=== PATIENT | male | born 1985 ===

== ENCOUNTER 2016-09-06 06:05 | Emergency (ER) | payer SELFPAY ==
[2016-09-06 06:23] VITALS: RESP 18; O2SAT 97
[2016-09-06 06:24] VITALS: BMI 30.1
--- NOTE | 2016-09-06 07:21 | ED PDOC ---
Arrival/HPI - General Chief Complaint: Cough, Cold, Congestion Time Seen by Provider: 09/06/16 07:06 Historian: Patient - History of Present Illness Narrative History of Present Illness (Text): 09/06/16 07:13 A 31 year old male, who denies any past medical history, presents to the emergency department complaining of a sore throat since yesterday. Patient notes chills, body aches and a productive cough with yellow/white sputum. He reports he experiences chest discomfort only when coughing. Patient denies any fever, ear ache, nausea, vomiting, diarrhea, abdominal pain, urinary symptoms, shortness of breath or any other complaints. PMD: Dr. Vazquez Time/Duration: Other (Yesterday) Symptom Course: Unchanged Quality: Other Context: Home Past Medical History - Provider Review Nursing Documentation Reviewed: Yes - Past History Past History: No Previous - Tetanus Immunization Tetanus Immunization: Unknown - Past Medical History Past Medical History: No Previous - Cardiac Hx Cardiac Disorders: No - Pulmonary Hx Respiratory Disorders: No - Neurological Hx Neurological Disorder: No - HEENT Hx HEENT Disorder: No - Renal Hx Renal Disorder: No - Endocrine/Metabolic Hx Endocrine Disorders: No - Hematological/Oncological Hx Blood Disorders: No - Integumentary Hx Dermatological Disorder: No - Musculoskeletal/Rheumatological Hx Musculoskeletal Disorders: No - Gastrointestinal Hx Gastrointestinal Disorders: No - Genitourinary/Gynecological Hx Genitourinary Disorders: No - Psychiatric Hx Psychophysiologic Disorder: No Hx Anxiety: No Hx Bipolar Disorder: No Hx Depression: Yes Hx Emotional Abuse: No Hx Hallucinations: No Hx Panic Disorder: No Hx Post Traumatic Stress Disorder: No Hx Psychosis: No Hx Physical Abuse: No Hx Schizophrenia: No Hx Sexual Abuse: No Hx Substance Use: No - Past Surgical History Past Surgical History: No Previous - Anesthesia Hx Anesthesia: No Hx Anesthesia Reactions: No - Suicidal Assessment Feels Threatened In Home Enviroment: No Family/Social History - Physician Review Nursing Documentation Reviewed: Yes Family/Social History: No Known Family HX Smoking Status: Never Smoked Hx Alcohol Use: No Hx Substance Use: No Hx Substance Use Treatment: No Allergies/Home Meds Allergies/Adverse Reactions: Allergies No Known Allergies Allergy (Verified 09/06/16 06:19) Review of Systems - Physician Review All systems were reviewed & negative as marked: Yes - Review of Systems Constitutional: Night Sweats. absent: Fevers ENT: Sore Throat. absent: TMJ Pain Respiratory: Cough, Sputum. absent: SOB Cardiovascular: Chest Pain (only when coughing) Gastrointestinal: absent: Abdominal Pain, Diarrhea, Nausea, Vomiting Genitourinary Male: absent: Dysuria, Frequency, Hematuria, Urinary Output Changes Musculoskeletal: Myalgias Physical Exam Vital Signs Reviewed: Yes Vital Signs Temp Pulse Resp BP Pulse Ox 09/06/16 10:27 98 F 74 18 112/78 97 09/06/16 08:04 97.8 F 76 18 128/75 97 09/06/16 06:20 98.7 F 83 18 131/72 97 Temperature: Afebrile Blood Pressure: Normal Pulse: Regular Respiratory Rate: Normal Appearance: Positive for: Well-Appearing, Non-Toxic, Comfortable Pain Distress: None Mental Status: Positive for: Alert and Oriented X 3 - Systems Exam Head: Present: Atraumatic, Normocephalic Pupils: Present: PERRL Extroacular Muscles: Present: EOMI Conjunctiva: Present: Normal Ears: Present: Normal, NORMAL TM, Normal Canal. No: Erythema, TM Bulging, Fluid , TM Perf Mouth: Present: Moist Mucous Membranes Pharnyx: Present: Normal. No: ERYTHEMA, EXUDATE, TONSILS ENLARGED, Peritonsilar Swelling, Uvular Deviation, Muffled/Hoarse Voice, Strider, Soft Palate/Uvular Edema Neck: Present: Normal Range of Motion Respiratory/Chest: Present: Clear to Auscultation, Good Air Exchange. No: Respiratory Distress, Accessory Muscle Use, Tender to Palpation Cardiovascular: Present: Regular Rate and Rhythm, Normal S1, S2. No: Murmurs Abdomen: Present: Normal Bowel Sounds. No: Tenderness, Distention, Peritoneal Signs Back: Present: Normal Inspection Upper Extremity: Present: Normal Inspection. No: Cyanosis, Edema Lower Extremity: Present: Normal Inspection. No: Edema Neurological: Present: GCS=15, CN II-XII Intact, Speech Normal Skin: Present: Warm, Dry, Normal Color. No: Rashes Psychiatric: Present: Alert, Oriented x 3, Normal Insight, Normal Concentration Medical Decision Making ED Course and Treatment: 09/06/16 07:13 Impression: A 31 year old male with a sore throat. Patient notes chills, body aches, productive cough and chest discomfort only when coughing. Physical exam unremarkable. Patient is PERC negative and has no cardiac risk factors. Differential Diagnosis included but are not limited to: PNA vs. URI vs. Pharyngitis vs. Viral pharyngitis Plan: -- Chest xray -- Rapid strep test -- Toradol and Tessalon perles -- Reassess and disposition Progress Notes: EKG shows NSR at 79 BPM with LVH, no ST/T changes, with no changes from prior on 05/01/16. Interpreted by me. 09/06/16 10:15 Patient has negative cxray and negative strep. Symptoms are consistent with uri but due to productive cough with yellow sputum will dc with zpack and cough medication. He is well appearing with normal vitals. - Lab Interpretations Lab Results: Lab Results 09/06/16 07:26: Grp A Beta Strep Ag Negative - RAD Interpretation Radiology Orders: 09/06/16 07:13 CHEST TWO VIEWS (PA/LAT) [RAD] Stat - Medication Orders Current Medication Orders: Discontinued Medications Benzonatate (Tessalon Perles) 100 mg PO STAT STA Stop: 09/06/16 07:34 Last Admin: 09/06/16 07:41 Dose: 100 mg Ketorolac Tromethamine (Toradol) 60 mg IM STAT STA Stop: 09/06/16 07:26 Last Admin: 09/06/16 07:35 Dose: 60 mg Re-Assess: SARAN Pain Assessment Document 09/06/16 08:35 OCS (Rec: 09/06/16 09:41 OCS [id number]) Pain Reassessment Is this a pain reassessment? Yes Sleep Is patient sleeping during reassessment? Yes - Scribe Statement The provider has reviewed the documentation as recorded by the Lori Palomino Provider Scribe Attestation: All medical record entries made by the Scribe were at my direction and personally dictated by me. I have reviewed the chart and agree that the record accurately reflects my personal performance of the history, physical exam, medical decision making, and the department course for this patient. I have also personally directed, reviewed, and agree with the discharge instructions and disposition. Disposition/Present on Arrival - Present on Arrival Any Indicators Present on Arrival: No History of DVT/PE: No History of Uncontrolled Diabetes: No Urinary Catheter: No History of Decub. Ulcer: No History Surgical Site Infection Following: None - Disposition Have Diagnosis and Disposition been Completed?: Yes Diagnosis: Cough Disposition: HOME/ ROUTINE Disposition Time: 10:16 Patient Plan: Discharge Condition: GOOD Discharge Instructions (ExitCare): Pharyngitis (ED), Upper Respiratory Infection (ED), Cold Symptoms (ED) Additional Instructions: Return to ED if condition worsens. Motrin for pain or fever. Copious fluids and rest. Follow-up with PMD within 2 days. Tessalon perles as needed for cough. Prescriptions: Azithromycin [Z-Caesar] 250 mg PO DAILY #6 tab Benzonatate [Tessalon Perles] 100 mg PO TID PRN #20 sgl PRN Reason: Cough Referrals: Hamlet Vazquez MD [Primary Care Provider] - Follow up with primary Forms: WORK NOTE
--- NOTE | 2016-09-06 10:17 | CARD ---
APPROVED REPORT EKG Measurement Heart [id number] <Conclusion> Normal sinus rhythm Voltage criteria for left ventricular hypertrophy Nonspecific T wave abnormality
[2016-09-06 10:27] VITALS: BP 112/78; PULSE 74; TEMP 98
--- NOTE | 2016-09-06 10:50 | RAD ---
HISTORY: productive cough' COMPARISON: Comparison is made to 05/01/2016 TECHNIQUE: Chest PA and lateral FINDINGS: LUNGS: No active pulmonary disease. PLEURA: No significant pleural effusion identified. No pneumothorax apparent. CARDIOVASCULAR: Normal. OSSEOUS STRUCTURES: No significant abnormalities. VISUALIZED UPPER ABDOMEN: Normal. OTHER FINDINGS: None. IMPRESSION: No active disease.
== END 2016-09-06 10:40 | disposition home or self-care (01) ==
LOC: ED 06:05
DX: R05 Cough (principal)
CPT/HCPCS: 71020; 87070; 87430; 93005; 96372; 99283; J1885

== ENCOUNTER 2017-03-12 13:53 | Emergency (ER) | payer OTHER ==
[2017-03-12 14:01] VITALS: BMI 28.8
[2017-03-12 14:04] VITALS: RESP 17
--- NOTE | 2017-03-12 14:15 | ED PDOC ---
Arrival/HPI - General Chief Complaint: Medical Clearance Time Seen by Provider: 03/12/17 14:02 - Critical Care Narrative Critical Care (Text): CC: electrical shock from light switch at hospital This patient is a 31yo M w/ no PMHx who is presenting to the ED 30 minutes after he was struck with electricty from an electrical switch here in the [facility] in the [facility]. Patient states he was going to turn the light on in the room he was entering and was shocked by the electricty. He denies any loss of consciousness, and is at his mental baseline according to coworkers around him. He has no abnormalities in gait, does not have any changes in vision, no chest pain, no shortness of breath, no abdominal pain, N/V/D, dysuria/freq/urg, or lower extremity pain swelling. He is complaing of left wrist pain that is increased when you do tinels maneuver. He has no other complaints. 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, independent in all IADL and ADL, denies smoking, drinks socially Past Medical History - Provider Review Nursing Documentation Reviewed: Yes - Travel History Have you recently traveled outside [place] w/in the past 3 mons?: No - Past History Past History: No Previous - Infectious Disease Hx of Infectious Diseases: None - Tetanus Immunization Tetanus Immunization: Unknown - Past Medical History Past Medical History: No Previous - Cardiac Hx Cardiac Disorders: No - Pulmonary Hx Respiratory Disorders: No - Neurological Hx Neurological Disorder: No - HEENT Hx HEENT Disorder: No - Renal Hx Renal Disorder: No - Endocrine/Metabolic Hx Endocrine Disorders: No - Hematological/Oncological Hx Blood Disorders: No - Integumentary Hx Dermatological Disorder: No - Musculoskeletal/Rheumatological Hx Musculoskeletal Disorders: No - Gastrointestinal Hx Gastrointestinal Disorders: No - Genitourinary/Gynecological Hx Genitourinary Disorders: No - Psychiatric Hx Psychophysiologic Disorder: No Hx Anxiety: No Hx Bipolar Disorder: No Hx Depression: Yes Hx Emotional Abuse: No Hx Hallucinations: No Hx Panic Disorder: No Hx Post Traumatic Stress Disorder: No Hx Psychosis: No Hx Physical Abuse: No Hx Schizophrenia: No Hx Sexual Abuse: No Hx Substance Use: No - Past Surgical History Past Surgical History: No Previous - Anesthesia Hx Anesthesia: No Hx Anesthesia Reactions: No - Suicidal Assessment Feels Threatened In Home Enviroment: No Family/Social History - Physician Review Nursing Documentation Reviewed: Yes Family/Social History: Hypertension Smoking Status: Never Smoked Hx Alcohol Use: No Hx Substance Use: No Hx Substance Use Treatment: No Allergies/Home Meds Allergies/Adverse Reactions: Allergies No Known Allergies Allergy (Verified 03/12/17 14:01) Home Medications: Home Meds Medication Instructions Recorded Confirmed No Known Home Med 03/12/17 03/12/17 Review of Systems - Physician Review All systems were reviewed & negative as marked: Yes - Review of Systems Constitutional: absent: Fatigue, Weight Change Eyes: absent: Vision Changes, Photophobia, Eye Pain ENT: absent: Hearing Changes, Tinnitus, TMJ Pain Respiratory: absent: SOB, Cough, Sputum Cardiovascular: absent: Chest Pain, Palpitations Gastrointestinal: absent: Abdominal Pain, Stool Changes Genitourinary Male: absent: Dysuria, Frequency, Hematuria Musculoskeletal: absent: Arthralgias Skin: absent: Rash Neurological: absent: Headache, Dizziness Endocrine: absent: Diaphoresis, Polyuria Hemo/Lymphatic: absent: Adenopathy, Easy Bleeding Psychiatric: absent: Anxiety, Depression Physical Exam Vital Signs Temp Pulse Resp BP Pulse Ox 03/12/17 14:03 97.9 F 70 17 130/79 96 Temperature: Afebrile Blood Pressure: Normal Pulse: Regular Respiratory Rate: Normal Appearance: Positive for: Well-Appearing, Non-Toxic Pain Distress: None Mental Status: Positive for: Alert and Oriented X 3 - Systems Exam Head: Present: Atraumatic Pupils: Present: PERRL Extroacular Muscles: Present: EOMI Conjunctiva: Present: Normal Mouth: Present: Moist Mucous Membranes Pharnyx: Present: Normal. No: ERYTHEMA, EXUDATE Nose (Internal): Present: Normal Inspection. No: No Active Bleeding Neck: Present: Normal Range of Motion. No: Meningeal Signs Respiratory/Chest: Present: Clear to Auscultation. No: Good Air Exchange Cardiovascular: Present: Regular Rate and Rhythm, Normal S1, S2. No: Murmurs Abdomen: Present: Tenderness, Normal Bowel Sounds. No: Distention Rectal: No: Occult Blood Back: No: CVA Tenderness Upper Extremity: Present: Normal Inspection, Normal ROM, NORMAL PULSES, Tenderness (tinel sign positive, positive phalen), Neurovascularly Intact, Norm 2-Pt Discrimination, Other (FROM, neurologically intact, 5/5 muscle strength, no abnormalities whatsoever ). No: Cyanosis, Edema, Swelling, Erythema, Temperature Abnormalties, Deformity Lower Extremity: Present: Normal Inspection, NORMAL PULSES. No: Edema, CALF TENDERNESS Neurological: Present: GCS=15, CN II-XII Intact, Speech Normal, Normal Sensory Function, Normal Cerebellar Funct, Norm Deep Tendon Reflexes, Gait Normal, Memory Normal, Normal 2Pt Descrimination Skin: Present: Warm Psychiatric: Present: Alert, Oriented x 3, Normal Insight Medical Decision Making ED Course and Treatment: 03/12/17 14:23 Will do EKG; shows signs of LVH consistent with HTN, NSR, good R wave progression; patient has reported famhx of HTN Patient will be given Ibuprofen 800mg Patient explained that his pain in his wrist is more consistent with carpal tunnel, given Phalen+ and Tinel Sign+ which could have been exacerbated by the electrical shock; patient works with hands for work dispo and reassess patient is stable for d/c as per Dr. Duncan The patient was told to follow up with his PMD for further preventitive health care screenings as his EKG shows signs of hypertension and has a positive family history of HTN The patient is agreeable - Medication Orders Current Medication Orders: Discontinued Medications Ibuprofen (Motrin Tab) 800 mg PO STAT STA Stop: 03/12/17 14:17 Disposition/Present on Arrival - Present on Arrival Any Indicators Present on Arrival: No History of DVT/PE: No History of Uncontrolled Diabetes: No Urinary Catheter: No History of Decub. Ulcer: No History Surgical Site Infection Following: None - Disposition Have Diagnosis and Disposition been Completed?: Yes Diagnosis: Electrical shock of hand Disposition: HOME/ ROUTINE Disposition Time: 14:24 Patient Plan: Discharge Condition: FAIR Discharge Instructions (ExitCare): Electrical Reid in Adults (ED) Additional Instructions: Please make sure to see your PCP within the week If you being to have weakness, trouble using your arm that was shocked, or start to have fevers/chills please come back for treatment as this can be a sign of worse electrical reid It was a pleasure taking care of you Please feel better You can take OTC Tylenol and Motrin for pain as is indicated on the bottles Forms: [employer] (Yakut), WORK NOTE
[2017-03-12 14:46] VITALS: BP 132/78; PULSE 72; TEMP 98.1; O2SAT 98
--- NOTE | 2017-03-12 22:07 | CARD ---
APPROVED REPORT EKG Measurement Heart [id number] <Conclusion> Normal sinus rhythm Voltage criteria for left ventricular hypertrophy Nonspecific T wave abnormality Abnormal ECG
== END 2017-03-12 14:43 | disposition home or self-care (01) ==
LOC: ED 13:53
DX: T75.4XXA Electrocution, initial encounter (principal); W86.8XXA Exposure to other electric current, initial encounter; Y92.239 Unspecified place in hospital as the place of occurrence of the external cause; Z82.49 Family history of ischemic heart disease and other diseases of the circulatory system

== ENCOUNTER 2017-07-05 08:05 | Emergency (ER) | payer OTHER, BC ==
[2017-07-05 08:05] VITALS: BMI 28.8
[2017-07-05 08:17] VITALS: BP 127/71; PULSE 70; RESP 18; TEMP 98; O2SAT 99
[2017-07-05] MEDS ORDERED: TDAP Vaccine 0.5 mL Syr IM ONE (08:24)
--- NOTE | 2017-07-05 08:30 | ED PDOC ---
Arrival/HPI - General Chief Complaint: Lower Extremity Problem/Injury Time Seen by Provider: 07/05/17 08:22 Historian: Patient - History of Present Illness Narrative History of Present Illness (Text): 07/05/17 08:25 while at work this morning, just prior to ED arrival, pt was accidentally struck on his left ankle/Achilles region by a pallet moving machine; pt states moderate pain to that region; no gross bleeding; pt states no fall, no head injury, no loc, no neck pain, no sob/palpitations, no cp/abd pain, no n/v, no numbness/tingling, no urinary/bowel changes; pt remained able to stand and walk ; pt is here for further eval; pt's without other complaints. tetanus: unknown Time/Duration: Prior to Arrival Symptom Onset: Sudden Symptom Course: Unchanged Quality: Tightness Severity Level: Moderate Activities at Onset: Other (walking) Context: Walking, Work Past Medical History - Provider Review Nursing Documentation Reviewed: Yes - Travel History Have you recently traveled outside [place] w/in the past 3 mons?: No - Past History Past History: No Previous - Infectious Disease Hx of Infectious Diseases: None - Tetanus Immunization Tetanus Immunization: Unknown - Past Medical History Past Medical History: No Previous - Cardiac Hx Cardiac Disorders: No - Pulmonary Hx Respiratory Disorders: No - Neurological Hx Neurological Disorder: No - HEENT Hx HEENT Disorder: No - Renal Hx Renal Disorder: No - Endocrine/Metabolic Hx Endocrine Disorders: No - Hematological/Oncological Hx Blood Disorders: No - Integumentary Hx Dermatological Disorder: No - Musculoskeletal/Rheumatological Hx Musculoskeletal Disorders: No - Gastrointestinal Hx Gastrointestinal Disorders: No - Genitourinary/Gynecological Hx Genitourinary Disorders: No - Psychiatric Hx Psychophysiologic Disorder: No Hx Anxiety: No Hx Bipolar Disorder: No Hx Depression: Yes Hx Emotional Abuse: No Hx Hallucinations: No Hx Panic Disorder: No Hx Post Traumatic Stress Disorder: No Hx Psychosis: No Hx Physical Abuse: No Hx Schizophrenia: No Hx Sexual Abuse: No Hx Substance Use: No - Past Surgical History Past Surgical History: No Previous - Anesthesia Hx Anesthesia: No Hx Anesthesia Reactions: No - Suicidal Assessment Feels Threatened In Home Enviroment: No Family/Social History - Physician Review Nursing Documentation Reviewed: Yes Family/Social History: No Known Family HX Smoking Status: Current Some Days Smoker Hx Alcohol Use: Yes Frequency of alcohol use: Socially Hx Substance Use: No Hx Substance Use Treatment: No Allergies/Home Meds Allergies/Adverse Reactions: Allergies No Known Allergies Allergy (Verified 07/05/17 08:14) Review of Systems - Review of Systems Constitutional: Normal Eyes: Normal ENT: Normal Respiratory: Normal Cardiovascular: Normal Gastrointestinal: Normal Genitourinary Male: Normal Musculoskeletal: Other (left achilles pain) Skin: Normal Neurological: Normal Endocrine: Normal Hemo/Lymphatic: Normal Psychiatric: Normal Physical Exam Vital Signs Reviewed: Yes Vital Signs Temp Pulse Resp BP Pulse Ox 07/05/17 08:14 98.0 F 70 18 127/71 99 Temperature: Afebrile Blood Pressure: Normal Pulse: Regular Respiratory Rate: Normal Appearance: Positive for: Well-Appearing, Non-Toxic, Other (resting in bed, alert/awake, NAD, comfortable appearing, GCS = 15, oriented x 3) Pain Distress: None Mental Status: Positive for: Alert and Oriented X 3 - Systems Exam Head: Present: Atraumatic, Normocephalic Pupils: Present: PERRL Extroacular Muscles: Present: EOMI Conjunctiva: Present: Normal Ears: Present: Normal Mouth: Present: Moist Mucous Membranes, Normal Teeth Pharnyx: Present: Normal Nose (External): Present: Atraumatic Nose (Internal): Present: Normal Inspection Neck: Present: Normal Range of Motion, Trachea Midline, Other (no step off, no midline tenderness, no nuchal rigidity). No: MIDLINE TENDERNESS Respiratory/Chest: Present: Clear to Auscultation, Good Air Exchange, Other ( CTA b/l, no w/r/r). No: Respiratory Distress, Accessory Muscle Use Cardiovascular: Present: Regular Rate and Rhythm, Normal S1, S2. No: Murmurs Abdomen: Present: Normal Bowel Sounds, Other (well nourished male, no focal tenderness, no masses/rebound/guarding/rigidity) Back: Present: Normal Inspection Upper Extremity: Present: Normal Inspection, Normal ROM, NORMAL PULSES, Neurovascularly Intact, Capillary Refill < 2s Lower Extremity: Present: Normal Inspection, NORMAL PULSES, Normal ROM, Capillary Refill < 2 s, Other (noted left mid achilles region skin erythema/ redness, mild swelling, slight tenderness at the base of the left achilles, no gross deformities noted, Intact ROM to all limbs, strength 5/5 grossly intact in all limbs, neurovasc intact b/l, +2/2 reflex b/l, + ambulatory/and able to bear weight) Neurological: Present: GCS=15, CN II-XII Intact, Speech Normal Skin: Present: Warm, Normal Color, Other (cap refill < 1sec, no ulcerations, no petechiae, + left mid-achilles redness, no open wounds/lacerations noted, no gross bleeding noted) Psychiatric: Present: Alert, Oriented x 3 Medical Decision Making ED Course and Treatment: 07/05/17 08:33 Impression: likely achilles contusion/strain, unlikely fracture i have consider all the differential diagnosis regarding pt's chief medical complaints/clinical findings, including but are not limited to: r/o fx, unlikely dislocation A/P: left achilles pain/strain - xray - zbigniew wrap - observe - supportive care 07/05/17 09:17 pt is comfortable pt is not in any distress pt is made aware of his medical results pt is encouraged RICE txt pt is encouraged outpt f/u pt will be discharged home Re-evaluation Time: 08:34 Reassessment Condition: Improving,but remains with symptoms - RAD Interpretation Narrative RAD Interpretations (Text): 07/05/17 16:50 left foot/ankle xray: No acute fx/dislocation Radiology Orders: 07/05/17 08:23 ANKLE LEFT 3 VIEWS ROUTINE [RAD] Stat FOOT LEFT 3 VIEWS ROUTINE [RAD] Stat Access Database Developer: Radiologist - Medication Orders Current Medication Orders: Discontinued Medications Ibuprofen (Motrin Tab) 600 mg PO STAT STA Stop: 07/05/17 08:24 Last Admin: 07/05/17 08:35 Dose: 600 mg MAR Pain/Vitals Document 07/05/17 08:35 OCS (Rec: 07/05/17 08:35 OCS [id number]) Pain Reassessment Is This A Pain ReAssessment? Yes Sleep Is patient sleeping during reassessment? No Presence of Pain Presence of Pain Yes Pain Scale Used Pain Scale Used Numeric Location Left, Right or Bilateral Left Pain Location Body Site Foot Description Constant Intensity 6 Scale Used Numeric Aggravating Factors ADL's Tetanus/Reduced Diphtheria/Acell Pertussis (Boostrix Vaccine Inj) 0.5 ml IM .ONCE ONE Stop: 07/05/17 08:25 Last Admin: 07/05/17 08:35 Dose: 0.5 ml Disposition/Present on Arrival - Present on Arrival Any Indicators Present on Arrival: No History of DVT/PE: No History of Uncontrolled Diabetes: No Urinary Catheter: No History of Decub. Ulcer: No History Surgical Site Infection Following: None - Disposition Have Diagnosis and Disposition been Completed?: Yes Diagnosis: Achilles tendon sprain, Strain of left Achilles tendon Disposition: HOME/ ROUTINE Disposition Time: 09:00 Patient Plan: Discharge Condition: STABLE Discharge Instructions (ExitCare): Lower Extremity Muscle Strain (DC), Sprain ( DC) Print Language: YORUBA Additional Instructions: Make sure to see your doctor in 1-2 days DRINK PLENTY OF FLUIDS take your medications as prescribed RETURN TO ED IF worse pain, cant breath, persistent vomiting, high fever >101- 102 for hours, altered behavior, unable to urinate, heavy/persistent bleeding, passing out, chest pain, or other medical emergencies Prescriptions: Ibuprofen [Motrin] 600 mg PO TID PRN #30 tab PRN Reason: Pain, Mild (1-3) Referrals: Pasha Farmer, DO [Staff Provider] - Follow up with primary Forms: [employer] (Maltese), [employer] (Telugu), WORK NOTE
--- NOTE | 2017-07-05 11:10 | RAD ---
PROCEDURE: Left Ankle Radiographs. HISTORY: left achilles region tenderness, struck at work COMPARISON: 03/29/2014 FINDINGS: BONES: Normal. No fracture. JOINTS: Normal. No osteoarthritis. Ankle mortise maintained. Talar dome intact SOFT TISSUES: Normal. OTHER FINDINGS: None. IMPRESSION: Normal left ankle radiographs.
--- NOTE | 2017-07-05 11:19 | RAD ---
PROCEDURE: Left Foot Radiographs. HISTORY: left achilles region tenderness, struck at work COMPARISON: None. FINDINGS: BONES: Normal. No fracture. JOINTS: Normal. SOFT TISSUES: Normal. OTHER FINDINGS: None. IMPRESSION: Normal left foot radiographs.
== END 2017-07-05 09:23 | disposition home or self-care (01) ==
LOC: ED 08:05
DX: S86.012A Strain of left Achilles tendon, initial encounter (principal); W31.89XA Contact with other specified machinery, initial encounter; Y92.238 Other place in hospital as the place of occurrence of the external cause; Y99.0 Civilian activity done for income or pay; Z23 Encounter for immunization

== ENCOUNTER 2017-09-22 14:51 | Emergency (ER) | payer BC, OTHER ==
[2017-09-22 14:51] VITALS: BMI 28.8
--- NOTE | 2017-09-22 16:31 | ED PDOC ---
Arrival/HPI - General Chief Complaint: Back Pain Time Seen by Provider: 09/22/17 15:34 Historian: Patient - History of Present Illness Narrative History of Present Illness (Text): 09/22/17 16:18 Pt is a 32 yr old male who presents to the ED complaining of neck pain upon waking this morning. Pt states that his neck is too stiff and sore to work tomorrow and needs a note for work. Denies fever, chest pain shortness of breath , back pain, trauma, change in vision, headache or any other complaints. Time/Duration: 4-6 hours Symptom Onset: Sudden Symptom Course: Unchanged Quality: Tightness Severity Level: Mild, Moderate Activities at Onset: Rest Context: Home Past Medical History - Provider Review Nursing Documentation Reviewed: Yes - Travel History Have you recently traveled outside [place] w/in the past 3 mons?: No - Past History Past History: No Previous - Infectious Disease Hx of Infectious Diseases: None - Tetanus Immunization Tetanus Immunization: Unknown - Past Medical History Past Medical History: No Previous - Cardiac Hx Cardiac Disorders: No - Pulmonary Hx Respiratory Disorders: No - Neurological Hx Neurological Disorder: No - HEENT Hx HEENT Disorder: No - Renal Hx Renal Disorder: No - Endocrine/Metabolic Hx Endocrine Disorders: No - Hematological/Oncological Hx Blood Disorders: No - Integumentary Hx Dermatological Disorder: No - Musculoskeletal/Rheumatological Hx Musculoskeletal Disorders: No - Gastrointestinal Hx Gastrointestinal Disorders: No - Genitourinary/Gynecological Hx Genitourinary Disorders: No - Psychiatric Hx Psychophysiologic Disorder: No Hx Substance Use: No - Past Surgical History Past Surgical History: No Previous - Anesthesia Hx Anesthesia: No Hx Anesthesia Reactions: No - Suicidal Assessment Feels Threatened In Home Enviroment: No Family/Social History - Physician Review Nursing Documentation Reviewed: Yes Family/Social History: Unknown Family HX Smoking Status: Current Some Days Smoker Hx Alcohol Use: Yes Hx Substance Use: No Hx Substance Use Treatment: No Allergies/Home Meds Allergies/Adverse Reactions: Allergies No Known Allergies Allergy (Verified 09/22/17 14:58) Review of Systems - Review of Systems Constitutional: Normal Eyes: Normal ENT: Normal Respiratory: Normal Cardiovascular: Normal Gastrointestinal: Normal Genitourinary Male: Normal Musculoskeletal: Normal, Neck Pain Skin: Normal Neurological: Normal Endocrine: Normal Hemo/Lymphatic: Normal Psychiatric: Normal Physical Exam Vital Signs Reviewed: Yes Vital Signs Temp Pulse Resp BP Pulse Ox 09/22/17 17:00 97.8 F 75 18 125/74 98 09/22/17 14:59 97.2 F L 87 16 127/83 97 Temperature: Afebrile Blood Pressure: Normal Pulse: Regular Respiratory Rate: Normal Appearance: Positive for: Well-Appearing, Non-Toxic, Comfortable Pain Distress: None Mental Status: Positive for: Alert and Oriented X 3 - Systems Exam Head: Present: Atraumatic, Normocephalic Pupils: Present: PERRL Extroacular Muscles: Present: EOMI Conjunctiva: Present: Normal Mouth: Present: Moist Mucous Membranes Neck: Present: Normal Range of Motion Respiratory/Chest: Present: Clear to Auscultation, Good Air Exchange. No: Respiratory Distress, Accessory Muscle Use Cardiovascular: Present: Regular Rate and Rhythm, Normal S1, S2. No: Murmurs Abdomen: No: Tenderness, Distention, Peritoneal Signs Back: Present: Normal Inspection, Paraspinal Tenderness (neck paraspinal hypertonicity wtih latent trigger points on palpation with referral pattern to the left nape of neck). No: CVA Tenderness, Midline Tenderness Upper Extremity: Present: Normal Inspection. No: Cyanosis, Edema Lower Extremity: Present: Normal Inspection. No: Edema Neurological: Present: GCS=15, CN II-XII Intact, Speech Normal Skin: Present: Warm, Dry, Normal Color. No: Rashes Psychiatric: Present: Alert, Oriented x 3, Normal Insight, Normal Concentration Medical Decision Making ED Course and Treatment: 09/22/17 16:31 Impression Pt is a 32 yr old male who presents to the ED complaining of neck pain upon waking this morning. Plan Toradol 30 mg IM assess and dispo Progress Note pt has full AROM with no radiculopathy VSS Flexeril for home and modified work note - Medication Orders Current Medication Orders: Discontinued Medications Ketorolac Tromethamine (Toradol) 30 mg IM STAT STA Stop: 09/22/17 16:18 Last Admin: 09/22/17 16:35 Dose: 30 mg MAR Pain Assessment Document 09/22/17 16:35 GMD (Rec: 09/22/17 16:36 GMD [id number]) Pain Reassessment Is this a pain reassessment? No Presence of Pain Presence of Pain Yes IM Administration Charges Document 09/22/17 16:35 GMD (Rec: 09/22/17 16:36 [facility] [id number]) Injection Site MAR Injection Site Right Deltoid Charges for Administration # of IM Administrations 1 Disposition/Present on Arrival - Present on Arrival Any Indicators Present on Arrival: Yes History of DVT/PE: No History of Uncontrolled Diabetes: No Urinary Catheter: No History of Decub. Ulcer: No History Surgical Site Infection Following: None - Disposition Have Diagnosis and Disposition been Completed?: Yes Diagnosis: Cervicalgia Disposition: HOME/ ROUTINE Disposition Time: 16:41 Patient Plan: Discharge Condition: STABLE Discharge Instructions (ExitCare): Generalized Neck Pain (DC) Additional Instructions: Josue Nesbitt, thank you for letting us take care of you today. Your provider was TREVON Nesbitt. You were treated for muscle strain in the neck. The emergency medical care you received today was directed at your acute symptoms. If you were prescribed any medication, please fill it and take as directed. It may take several days for your symptoms to resolve. Return to the Emergency Department if your symptoms worsen, do not improve, or if you have any other problems. Please contact your doctor or call one of the physicians/clinics you have been referred to that are listed on the Patient Visit Information form that is included in your discharge packet. Bring any paperwork you were given at discharge with you along with any medications you are taking to your follow up visit. Our treatment cannot replace ongoing medical care by a primary care provider (PCP) outside of the emergency department. Thank you for allowing the [facility] team to be part of your care today. Prescriptions: Cyclobenzaprine [Flexeril] 5 mg PO Q12 5 Days #10 tab Ibuprofen [Motrin Tab] 600 mg PO Q6 PRN 5 Days #20 tab PRN Reason: pain/fever Referrals: Shant Vazquez MD [Primary Care Provider] - Follow up with primary Forms: [employer] (Bengali), WORK NOTE
[2017-09-22 17:01] VITALS: BP 125/74; PULSE 75; RESP 18; TEMP 97.8; O2SAT 98
== END 2017-09-22 17:19 | disposition home or self-care (01) ==
LOC: ED 14:51
DX: M54.2 Cervicalgia (principal); F17.200 Nicotine dependence, unspecified, uncomplicated
CPT/HCPCS: 96372; 99283; J1885

== ENCOUNTER 2017-11-12 23:28 | Emergency (ER) | payer BC, OTHER ==
[2017-11-12 23:28] VITALS: BMI 28.8
[2017-11-13 00:08] VITALS: RESP 18; TEMP 98.1
--- NOTE | 2017-11-13 00:59 | ED PDOC ---
Arrival/HPI - General Chief Complaint: Back Pain Time Seen by Provider: 11/13/17 00:04 Historian: Patient - History of Present Illness Narrative History of Present Illness (Text): 11/13/17 00:54 32 year old male, with no significant past medical history and NKDA, presents to the Emergency department complaining of left sided upper back discomfort since 2 months. Patient states mild worsening symptoms with movement of left arm and palpation. pt denies pain with inspiration. Patient informs unchanged symptoms after topical application of Bengay and massage, prompting him to present to the Emergency department for evaluation. Patient denies any fever, chills, nausea, vomiting, diarrhea, abdominal pain, chest pain, shortness of breath, trauma or any other complaints. Patient admits to smoking cigarettes occasionally. Time/Duration: > month (2 months) Symptom Onset: Gradual Symptom Course: Unchanged Quality: Aching Activities at Onset: Light Context: Home Past Medical History - Provider Review Nursing Documentation Reviewed: Yes - Travel History Have you recently traveled outside [place] w/in the past 3 mons?: No - Past History Past History: No Previous - Infectious Disease Hx of Infectious Diseases: None - Tetanus Immunization Tetanus Immunization: Unknown - Past Medical History Past Medical History: No Previous - Cardiac Hx Cardiac Disorders: No - Pulmonary Hx Respiratory Disorders: No - Neurological Hx Neurological Disorder: No - HEENT Hx HEENT Disorder: No - Renal Hx Renal Disorder: No - Endocrine/Metabolic Hx Endocrine Disorders: No - Hematological/Oncological Hx Blood Disorders: No - Integumentary Hx Dermatological Disorder: No - Musculoskeletal/Rheumatological Hx Musculoskeletal Disorders: No - Gastrointestinal Hx Gastrointestinal Disorders: No - Genitourinary/Gynecological Hx Genitourinary Disorders: No - Psychiatric Hx Psychophysiologic Disorder: No Hx Substance Use: No - Past Surgical History Past Surgical History: No Previous - Anesthesia Hx Anesthesia: No Hx Anesthesia Reactions: No - Suicidal Assessment Feels Threatened In Home Enviroment: No Family/Social History - Physician Review Nursing Documentation Reviewed: Yes Family/Social History: No Known Family HX Smoking Status: Current Some Days Smoker Hx Alcohol Use: Yes Hx Substance Use: No Hx Substance Use Treatment: No Allergies/Home Meds Allergies/Adverse Reactions: Allergies No Known Allergies Allergy (Verified 09/22/17 14:58) Review of Systems - Physician Review All systems were reviewed & negative as marked: Yes - Review of Systems Constitutional: Normal. absent: Fevers Respiratory: Normal. absent: SOB Cardiovascular: Normal. absent: Chest Pain Gastrointestinal: Normal. absent: Abdominal Pain, Diarrhea, Nausea, Vomiting Genitourinary Male: absent: Dysuria, Frequency, Hematuria Musculoskeletal: Back Pain (left sided upper back discomfort). absent: Arthralgias, Neck Pain Skin: Normal. absent: Rash, Pruritis Neurological: absent: Headache, Dizziness Psychiatric: absent: Anxiety, Depression Physical Exam Vital Signs Reviewed: Yes Vital Signs Temp Pulse Resp BP Pulse Ox 11/13/17 00:07 98.1 F 84 18 128/82 99 Temperature: Afebrile Blood Pressure: Normal Pulse: Regular Respiratory Rate: Normal Appearance: Positive for: Well-Appearing, Non-Toxic, Comfortable Pain Distress: None Mental Status: Positive for: Alert and Oriented X 3 - Systems Exam Head: Present: Atraumatic, Normocephalic Pupils: Present: PERRL Extroacular Muscles: Present: EOMI Conjunctiva: Present: Normal Mouth: Present: Moist Mucous Membranes Neck: Present: Normal Range of Motion Respiratory/Chest: Present: Clear to Auscultation, Good Air Exchange. No: Respiratory Distress, Accessory Muscle Use Cardiovascular: Present: Regular Rate and Rhythm, Normal S1, S2. No: Murmurs Abdomen: No: Tenderness, Distention, Peritoneal Signs, Rebound, Guarding Back: Present: Normal Inspection, Paraspinal Tenderness, Other (Mild tenderness to touch to left trapezius and medial aspect of scapula.no edema,no erythema, no ecchymosis. ). No: CVA Tenderness, Midline Tenderness Upper Extremity: Present: Normal Inspection. No: Cyanosis, Edema Lower Extremity: Present: Normal Inspection. No: Edema Neurological: Present: GCS=15, Speech Normal Skin: Present: Warm, Dry, Normal Color. No: Rashes Psychiatric: Present: Alert, Oriented x 3 Medical Decision Making ED Course and Treatment: 11/13/17 01:01 Impression: 32 year old male presents to the Emergency department for left sided upper back pain x 2 months Plan: -- Chest X-ray- no infiltrate, no effusion, no cardiomegaly -- Toradol -- Flexeril -- Reassess and disposition Prior Visits: Notes and results from previous visits were reviewed. Progress Notes: 11/13/17 01:36 Patient nontoxic well-appearing nondistressed stable vital signs. Patient assessment: Patient feeling better after medications. I discussed the patient advised follow-up with primary care physician within the next 2 days. Advised taking medications as prescribed. Advised to return should symptoms worsen or persist or concerning symptoms develop Patient verbalizes understanding of discharge instructions and need for immediate followup. all aspects of this case were discussed the attending of record. Impression: Back pain Motrin every 6 hours as needed for pain Flexeril one tablet every 8 hours as needed for muscle spasms: May cause drowsiness Followup with the orthopedist within the next 2 days Followup with primary care physician within the next 2 days Return if symptoms worsen persist or if new symptoms develop Re-evaluation Time: 01:37 Reassessment Condition: Re-examined, Improved - RAD Interpretation Radiology Orders: 11/13/17 00:59 CHEST TWO VIEWS (PA/LAT) [RAD] Stat - Medication Orders Current Medication Orders: Discontinued Medications Cyclobenzaprine HCl (Flexeril) 10 mg PO STAT STA Stop: 11/13/17 01:01 Last Admin: 11/13/17 01:15 Dose: 10 mg Ketorolac Tromethamine (Toradol) 60 mg IM STAT STA Stop: 11/13/17 01:01 Last Admin: 11/13/17 01:15 Dose: 60 mg MAR Pain Assessment Document 11/13/17 01:15 AD (Rec: 11/13/17 01:16 AD [id number]) Pain Reassessment Is this a pain reassessment? No Presence of Pain Presence of Pain Yes Pain Scale Used Pain Scale Used Numeric Description Intensity of Pain at present 8 IM Administration Charges Document 11/13/17 01:15 AD (Rec: 11/13/17 01:16 AD [id number]) Injection Site MAR Injection Site Right Gluteus Patrick Charges for Administration # of IM Administrations 1 - PA / CRYOGENICS REPAIRER / Resident Statement / has reviewed & agrees with the documentation as recorded. / has examined the patient and agrees with the treatment plan. - Scribe Statement The provider has reviewed the documentation as recorded by the Lori Benton. All medical record entries made by the Adryanibelio were at my direction and personally dictated by me. I have reviewed the chart and agree that the record accurately reflects my personal performance of the history, physical exam, medical decision making, and the department course for this patient. I have also personally directed, reviewed, and agree with the discharge instructions and disposition. Disposition/Present on Arrival - Present on Arrival Any Indicators Present on Arrival: No History of DVT/PE: No History of Uncontrolled Diabetes: No Urinary Catheter: No History of Decub. Ulcer: No History Surgical Site Infection Following: None - Disposition Have Diagnosis and Disposition been Completed?: Yes Diagnosis: Back pain Disposition: HOME/ ROUTINE Disposition Time: 01:38 Patient Plan: Discharge Condition: GOOD Discharge Instructions (ExitCare): Upper Back Pain (DC) Additional Instructions: Motrin every 6 hours as needed for pain Flexeril one tablet every 8 hours as needed for muscle spasms: May cause drowsiness Followup with the orthopedist within the next 2 days Followup with primary care physician within the next 2 days Return if symptoms worsen persist or if new symptoms develop Prescriptions: Cyclobenzaprine [Cyclobenzaprine HCl] 10 mg PO Q8 #10 tab Ibuprofen [Motrin] 600 mg PO Q6H PRN #20 tab PRN Reason: pain/fever reduction Referrals: Edgard Moreland MD [Staff Provider] - Follow up with primary Ralph Mendez III, MD [Medical Doctor] - Follow up with primary Wesly Hopper MD [Staff Provider] - Follow up with primary Forms: [employer] (Uzbek), WORK NOTE
[2017-11-13 02:24] VITALS: BP 125/74; PULSE 80; O2SAT 100
--- NOTE | 2017-11-13 11:42 | RAD ---
HISTORY: left upper back pain x 2 months COMPARISON: No prior. TECHNIQUE: Chest PA and lateral FINDINGS: LUNGS: No active pulmonary disease. PLEURA: No significant pleural effusion identified. No pneumothorax apparent. CARDIOVASCULAR: Normal. OSSEOUS STRUCTURES: No significant abnormalities. VISUALIZED UPPER ABDOMEN: Normal. OTHER FINDINGS: None. IMPRESSION: No active disease. Concordant results with the preliminary interpretation rendered by the emergency department physician procedure.
== END 2017-11-13 02:00 | disposition home or self-care (01) ==
LOC: ED 23:28
DX: M54.6 Pain in thoracic spine (principal)
CPT/HCPCS: 71046; 96372; 99283; J1885

== ENCOUNTER 2018-05-24 14:21 | Emergency (ER) | payer OTHER ==
[2018-05-24 14:21] VITALS: BMI 28.8
[2018-05-24 14:37] VITALS: TEMP 98.5
[2018-05-24 15:38] VITALS: BP 122/70; PULSE 80; RESP 18; O2SAT 98
--- NOTE | 2018-05-24 15:57 | ED PDOC ---
Arrival/HPI - General Chief Complaint: Abnormal Skin Integrity Time Seen by Provider: 05/24/18 14:24 Historian: Patient - History of Present Illness Narrative History of Present Illness (Text): 05/24/18 15:15 33 year old male, with no significant past medical history, presents to the emergency department complaining of mild reaction to right forearm after using a chemical agent. Patient is an employee in [employer] and reports getting a mild reaction to the right forearm and reports he washed it off right away. He decided to come to the ER for evaluation. Patient denies any other contact. Patient denies any cough, shortness of breath, chest pain, air way compromise, or any other complaints. PMD. Dr. Vazquez Symptom Onset: Sudden Symptom Course: Unchanged Activities at Onset: Light Context: Work Past Medical History - Provider Review Nursing Documentation Reviewed: Yes - Past History Past History: No Previous - Infectious Disease Hx of Infectious Diseases: None - Tetanus Immunization Tetanus Immunization: Unknown - Past Medical History Past Medical History: No Previous - Cardiac Hx Cardiac Disorders: No - Pulmonary Hx Respiratory Disorders: No - Neurological Hx Neurological Disorder: No - HEENT Hx HEENT Disorder: No - Renal Hx Renal Disorder: No - Endocrine/Metabolic Hx Endocrine Disorders: No - Hematological/Oncological Hx Blood Disorders: No - Integumentary Hx Dermatological Disorder: No - Musculoskeletal/Rheumatological Hx Musculoskeletal Disorders: No - Gastrointestinal Hx Gastrointestinal Disorders: No - Genitourinary/Gynecological Hx Genitourinary Disorders: No - Psychiatric Hx Psychophysiologic Disorder: No Hx Substance Use: No - Past Surgical History Past Surgical History: No Previous - Anesthesia Hx Anesthesia: No Hx Anesthesia Reactions: No - Suicidal Assessment Feels Threatened In Home Enviroment: No Family/Social History - Physician Review Nursing Documentation Reviewed: Yes Family/Social History: No Known Family HX Smoking Status: Current Some Days Smoker Hx Alcohol Use: Yes Hx Substance Use: No Hx Substance Use Treatment: No Allergies/Home Meds Allergies/Adverse Reactions: Allergies No Known Allergies Allergy (Verified 09/22/17 14:58) Review of Systems - Physician Review All systems were reviewed & negative as marked: Yes - Review of Systems Constitutional: absent: Fevers Respiratory: absent: SOB, Cough Cardiovascular: absent: Chest Pain Skin: Other (chemical reaction on right forearm) Neurological: absent: Headache, Dizziness Physical Exam Vital Signs Reviewed: Yes Vital Signs Temp Pulse Resp BP Pulse Ox 05/24/18 15:38 80 18 122/70 98 05/24/18 14:33 98.5 F 65 16 129/81 99 Temperature: Afebrile Blood Pressure: Normal Pulse: Regular Respiratory Rate: Normal Appearance: Positive for: Well-Appearing, Non-Toxic, Comfortable Pain Distress: None Mental Status: Positive for: Alert and Oriented X 3 - Systems Exam Head: Present: Atraumatic, Normocephalic Pupils: Present: PERRL Extroacular Muscles: Present: EOMI Conjunctiva: Present: Normal Mouth: Present: Moist Mucous Membranes Neck: Present: Normal Range of Motion Respiratory/Chest: Present: Clear to Auscultation, Good Air Exchange. No: Respiratory Distress, Accessory Muscle Use Cardiovascular: Present: Regular Rate and Rhythm, Normal S1, S2. No: Murmurs Neurological: Present: GCS=15, CN II-XII Intact, Speech Normal Skin: Present: Warm, Dry, Normal Color, Erythematous (right forearm with mild erythema. Not warm to touch. Not painful to touch. ) Psychiatric: Present: Alert, Oriented x 3, Normal Insight, Normal Concentration Medical Decision Making ED Course and Treatment: 05/24/18 15:15 Impression: 33 year old male presents complaining mild reaction to right forearm after using a chemical agent. Plan: -- irrigated -- disposition Progress Notes: 05/24/18 15:38 Irrigated patient's arm for 20 minutes and the redness went away. Patient is in no acute distress. I have discussed the plan with the patient, who expresses understanding. Patient in agreement with plan to be discharged home. Patient is stable for discharge. Patient was instructed to follow up with physician or return if symptoms worsen or new concerning symptoms arise. - Scribe Statement The provider has reviewed the documentation as recorded by the Lori Randle Provider Scribe Attestation: All medical record entries made by the Lori were at my direction and personally dictated by me. I have reviewed the chart and agree that the record accurately reflects my personal performance of the history, physical exam, medical decision making, and the department course for this patient. I have also personally directed, reviewed, and agree with the discharge instructions and disposition. Disposition/Present on Arrival - Present on Arrival Any Indicators Present on Arrival: No History of DVT/PE: No History of Uncontrolled Diabetes: No Urinary Catheter: No History of Decub. Ulcer: No History Surgical Site Infection Following: None - Disposition Have Diagnosis and Disposition been Completed?: Yes Diagnosis: Chemical exposure Disposition: HOME/ ROUTINE Disposition Time: 14:30 Condition: GOOD Discharge Instructions (ExitCare): Chemical Exposure to the Skin (DC) Additional Instructions: JOCY SNYDER, thank you for letting us take care of you today. The emergency medical care you received today was directed at your acute symptoms. If you were prescribed any medication, please fill it and take as directed. It may take several days for your symptoms to resolve. Return to the Emergency Department if your symptoms worsen, do not improve, or if you have any other problems. Please contact your doctor or call one of the physicians/clinics you have been referred to that are listed on the Patient Visit Information form that is included in your discharge packet. Bring any paperwork you were given at discharge with you along with any medications you are taking to your follow up visit. Our treatment cannot replace ongoing medical care by a primary care provider outside of the emergency department. Thank you for allowing the [facility] team to be part of your care today. Use the cream prescribed until redness goes away. Follow up with your primary care doctor or the emergency room if you have any concerns. Prescriptions: Diclofenac Sodium [Voltaren] 100 gm TP BID #1 tube [facility] - Follow up with primary Forms: [employer] (Bulgarian), WORK NOTE
== END 2018-05-24 15:38 | disposition home or self-care (01) ==
LOC: ED 14:21
DX: Z77.098 Contact with and (suspected) exposure to other hazardous, chiefly nonmedicinal, chemicals (principal)

== ENCOUNTER 2018-07-22 09:03 | Outpatient (CLI) | payer OTHER | END 2018-07-22 09:04 | disposition home or self-care (01) | LOC: LAB 09:03 ==

== ENCOUNTER → 2018-07-26 | Outpatient (CLI) | payer OTHER | LOC: LAB 08:56 ==

== ENCOUNTER 2018-09-21 16:04 | Emergency (ER) | payer OTHER ==
[2018-09-21 16:04] VITALS: BMI 28.8
[2018-09-21 16:40] VITALS: TEMP 97
--- NOTE | 2018-09-21 16:46 | ED PDOC ---
Arrival/HPI - General Chief Complaint: Upper Extremity Problem/Injury Historian: Patient - History of Present Illness Narrative History of Present Illness (Text): 09/21/18 16:46 33 y/o male, no significant pmh, nkda, c/o lt. shoulder pain x 2 days after s leeping on the left shoulder with no fall or trauma. Aching pain, associated with spasm, aggravated by movement, no numbness or tingling, no night sweat, no rash, no dizziness, no chest pain or shortness of breath, no change in vision, no palpitation, no diarrhea, no other medical or psychological complaints. Past Medical History - Provider Review Nursing Documentation Reviewed: Yes Primary Care Provider: Shant Vazquez - Past History Past History: No Previous - Infectious Disease Hx of Infectious Diseases: None - Tetanus Immunization Tetanus Immunization: Unknown - Past Medical History Past Medical History: No Previous - Cardiac Hx Cardiac Disorders: No - Pulmonary Hx Respiratory Disorders: No - Neurological Hx Neurological Disorder: No - HEENT Hx HEENT Disorder: No - Renal Hx Renal Disorder: No - Endocrine/Metabolic Hx Endocrine Disorders: No - Hematological/Oncological Hx Blood Disorders: No - Integumentary Hx Dermatological Disorder: No - Musculoskeletal/Rheumatological Hx Musculoskeletal Disorders: No - Gastrointestinal Hx Gastrointestinal Disorders: No - Genitourinary/Gynecological Hx Genitourinary Disorders: No - Psychiatric Hx Psychophysiologic Disorder: No Hx Substance Use: No - Past Surgical History Past Surgical History: No Previous - Anesthesia Hx Anesthesia: No Hx Anesthesia Reactions: No Hx Malignant Hyperthermia: No - Suicidal Assessment Feels Threatened In Home Enviroment: No Family/Social History - Physician Review Nursing Documentation Reviewed: Yes Family/Social History: Unknown Family HX Smoking Status: Current Some Days Smoker Hx Alcohol Use: Yes Hx Substance Use: No Hx Substance Use Treatment: No Allergies/Home Meds Allergies/Adverse Reactions: Allergies No Known Allergies Allergy (Verified 09/22/17 14:58) Review of Systems - Review of Systems Constitutional: absent: Fatigue, Fevers Eyes: absent: Vision Changes ENT: absent: Hearing Changes Respiratory: absent: SOB, Cough Cardiovascular: absent: Chest Pain Gastrointestinal: absent: Abdominal Pain, Diarrhea, Nausea, Vomiting Genitourinary Male: absent: Dysuria Musculoskeletal: absent: Arthralgias, Back Pain Skin: absent: Rash, Pruritis, Skin Lesions Neurological: absent: Headache, Dizziness Endocrine: absent: Diaphoresis, Polyuria Psychiatric: absent: Anxiety, Depression, Suicidal Ideation Physical Exam Vital Signs Reviewed: Yes Vital Signs Temp Pulse Resp BP Pulse Ox 09/21/18 16:27 97 F L 85 17 146/85 98 Temperature: Afebrile Blood Pressure: Normal Pulse: Regular Respiratory Rate: Normal Appearance: Positive for: Well-Appearing, Non-Toxic, Comfortable Pain Distress: Moderate Mental Status: Positive for: Alert and Oriented X 3 - Systems Exam Head: Present: Atraumatic, Normocephalic Pupils: Present: PERRL Extroacular Muscles: Present: EOMI Conjunctiva: Present: Normal Mouth: Present: Moist Mucous Membranes Neck: Present: Normal Range of Motion Respiratory/Chest: Present: Clear to Auscultation, Good Air Exchange. No: Respiratory Distress, Accessory Muscle Use, Wheezes, Decreased Breath Sounds, Rales, Retracting, Rhonchi, Tachypneic, Tender to Palpation Cardiovascular: Present: Regular Rate and Rhythm, Normal S1, S2. No: Murmurs, Peripheal Pulses Present, Tachycardic Abdomen: No: Tenderness, Distention, Peritoneal Signs, Rebound, Guarding Back: Present: Normal Inspection Upper Extremity: Present: Normal Inspection, Other (Lt. shoulder: +spasm and tenderness on the left trapezius region, no deformity, FROM without limitation, sensation intact, motor 5/5, neurovascular intact. ). No: Cyanosis, Edema Lower Extremity: Present: Normal Inspection. No: Edema Neurological: Present: GCS=15, CN II-XII Intact, Speech Normal Skin: Present: Warm, Dry, Normal Color. No: Rashes Psychiatric: Present: Alert, Oriented x 3, Normal Insight, Normal Concentration Medical Decision Making ED Course and Treatment: 09/21/18 17:13 -Toradol and valium -Observe and reassess 09/21/18 17:21 -Pt. comfortna be discharged home. -Discharge home with motrin, flexeril, lidoderm patch, heat compression, follow up with your own pmd and orthopedic within 2 days, return to the ER for any new or worsening signs or symptoms. - PA / ONLINE MARKETING ANALYST / Resident Statement / has reviewed & agrees with the documentation as recorded. Disposition/Present on Arrival - Present on Arrival Any Indicators Present on Arrival: No History of DVT/PE: No History of Uncontrolled Diabetes: No Urinary Catheter: No History of Decub. Ulcer: No History Surgical Site Infection Following: None - Disposition Have Diagnosis and Disposition been Completed?: Yes Diagnosis: Trapezius muscle spasm Disposition: HOME/ ROUTINE Disposition Time: 16:46 Patient Plan: Discharge Patient Problems: Current Active Problems Problem Status Onset Trapezius muscle spasm Acute Condition: IMPROVED Additional Instructions: Discharge home with motrin, flexeril, lidoderm patch, heat compression, follow up with your own pmd and orthopedic within 2 days, return to the ER for any new or worsening signs or symptoms. Prescriptions: Cyclobenzaprine [Cyclobenzaprine HCl] 10 mg PO TID PRN #21 tab PRN Reason: Other Ibuprofen [Motrin] 600 mg PO QID PRN #30 tab PRN Reason: Other Lidocaine 5% [Lidoderm] 1 patch TOP DAILY PRN #10 patch PRN Reason: Other Referrals: [facility] [place] [Outside] - Follow up with primary Rasheed Molina MD [Staff Provider] - Follow up with primary Forms: [facility] ([place]), WORK NOTE
[2018-09-21 17:36] VITALS: BP 150/82; PULSE 75; RESP 18; O2SAT 97
== END 2018-09-21 17:34 | disposition home or self-care (01) ==
LOC: ED 16:04
DX: M62.838 Other muscle spasm (principal)
CPT/HCPCS: 96372; 99283; J1885